=== PATIENT | male | born 1970 | race Caucasian/White ===

== ENCOUNTER 2021-03-25 11:47 | Emergency (ER) | payer OTHER ==
[~2021-03-25] VITALS: Ht 172.7 cm; Wt 86.0 kg
[~2021-03-25 11:47] MED LIST: HYDR-3237 PO; NO HOME MEDS
[2021-03-25 11:52] VITALS: BP 164/100
[2021-03-25] MEDS ORDERED: KETOROLAC 30 MG/1 ML ONE (13:26)
[2021-03-25] MEDS ORDERED: CYCLOBENZAPRINE 10 MG TABLET ONE (13:26)
--- NOTE | 2021-03-25 14:11 | NUR ---
CHART UP FOR MD RECHECK. PT AWARE.
== END 2021-03-25 14:30 | disposition home or self-care (01) ==
LOC: ED 14:07
DX: S16.1XXA Strain of muscle, fascia and tendon at neck level, initial encounter (principal); S46.912A Strain of unspecified muscle, fascia and tendon at shoulder and upper arm level, left arm, initial encounter; V49.09XA Driver injured in collision with other motor vehicles in nontraffic accident, initial encounter; Y93.89 Activity, other specified; Y92.410 Unspecified street and highway as the place of occurrence of the external cause; Y99.8 Other external cause status
CPT/HCPCS: 72125; 99284